=== PATIENT | male | born 1935 | race Caucasian/White ===

== ENCOUNTER 2017-02-12 21:41 | Inpatient (IN) | payer MEDICARE ==
[~2017-02-12] VITALS: Ht 175.3 cm; Wt 54.1 kg
[2017-02-12 22:13] LABS: BASO # 0.1 x10^3/uL (0.0-0.2); BASO % 1 % (0-3); EOS % 0 % (0-3); HEMATOCRIT 41.4 % (39.0-53.0); HEMOGLOBIN 14.2 g/dL (13.0-17.5); LYMPH # 0.3 x10^3/uL (1.0-4.8); LYMPH % 4 % (24-48); MEAN CORPUSCULAR HEMOGLOBIN 30 pg (25-35); MEAN CORPUSCULAR HGB CONC 34 g/dL (31-37); MEAN CORPUSCULAR VOLUME 87 fL (79-100); MONO % 9 % (0-9); NEUT % 87 % (31-73); PLATELET COUNT 219 x10^3/uL (140-400); RED BLOOD COUNT 4.74 x10^6/uL (4.30-5.70); RED CELL DISTRIBUTION WIDTH 13.5 % (11.5-14.5); WHITE BLOOD COUNT 9.5 x10^3/uL (4.0-11.0)
[2017-02-12 22:32] LABS: CALCIUM 8.3 mg/dL (8.5-10.1); CREATININE 1.2 mg/dL (0.7-1.3); GFR 58.1; POTASSIUM 4.2 mmol/L (3.5-5.1)
[2017-02-12 22:37] LABS: ALBUMIN 3.3 g/dL (3.4-5.0); DIRECT BILIRUBIN 0.1 mg/dL (0.0-0.2); TOTAL BILIRUBIN 0.5 mg/dL (0.2-1.0); TOTAL PROTEIN 7.3 g/dL (6.4-8.2)
[2017-02-12 22:46] LABS: PLT ESTIMATE ADEQUATE (ADEQUATE)
[2017-02-12] MEDS ORDERED: IV NORMAL SALINE 500ML BAG 500 ML IV ONE (23:00)
--- NOTE | 2017-02-12 23:02 | PHYS DOC ---
Past Medical History Past Medical History: Other Additional Past Medical Histor: DENIES Past Surgical History: Other Additional Past Surgical Histo: UNKNOWN Alcohol Use: None Drug Use: None Adult General Chief Complaint Chief Complaint: WEAKNESS/GENERALIZED HPI HPI 81-year-old male presenting to the emergency department today with generalized weakness and nausea. This is been present for the past few days. He was at home and was on the chair however unfortunately was not able to get out of the chair. He gently sat down on the ground but was unable to get up. He presents today by [facility] emergency medical services. EMS reports the patient has a left bundle branch block on their EKG. On review the patient's previous past medical history, the patient has a history of left bundle-branch block on EKG that was reviewed on December 05, 2013. He denies any pain anywhere. He feels "just weak". Onset today. Location generalized. Duration intermittent. No alleviating or exacerbating factors present. 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 Review of systems is negative for chest pain shortness of breath abdominal pain fevers chills cough neck stiffness confusion cyanosis numbness weakness or tingling. All other review of systems is negative unless otherwise noted in history of present illness. ED course: 81-year-old gentleman presenting to the emergency department with generalized weakness and inability to ambulate. Triage vital signs afebrile with normal heart rate. Saturating well on room air with normal blood pressure. Pertinent physical exam findings showed 5 out of 5 strength in his right upper and right lower extremity. 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 Otherwise the remainder of the neurologic exam was unremarkable. Labs obtained along with EKG. EKG shows sinus rhythm with a regular rate. Leftward axis present. Left bundle-branch block present. Previous EKG reviewed on December 05 similar to previous. Urinary tract infection present. She was then admitted to our hospital for IV antibiotic therapy further evaluation workup and care. Review of Systems Review of Systems SEE ABOVE. Current Medications Current Medications Current Medications Medications (Trade) Dose Ordered Sig/Naomi Start Time Stop Time Status Last Admin Dose Admin Sodium Chloride 500 ml @ 500 mls/hr 1X ONCE 02/12/17 23:00 02/12/17 23:59 DC 02/12/17 23:07 500 MLS/HR Allergies Allergies Allergies Coded Allergies Type Severity Reaction Last Updated Verified Penicillins Allergy Intermediate Swelling 02/12/17 Yes Physical Exam Physical Exam SEE ABOVE Constitutional: Well developed, well nourished, no acute distress, non-toxic appearance. [] HENT: Normocephalic, atraumatic, bilateral external ears normal, oropharynx moist, no oral exudates, nose normal. [] Eyes: PERRLA, EOMI, conjunctiva normal, no discharge. [] Neck: Normal range of motion, no tenderness, supple, no stridor. [] Cardiovascular:Heart rate regular rhythm, no murmur [] Lungs & Thorax: Bilateral breath sounds clear to auscultation [] Abdomen: Bowel sounds normal, soft, no tenderness, no masses, no pulsatile masses. [] Skin: Warm, dry, no erythema, no rash. [] Back: No tenderness, no CVA tenderness. [] Extremities: No tenderness, no cyanosis, no clubbing, ROM intact, no edema. [] Neurologic: Mental status: Awake oriented and alert x3 Cranial nerves: Extraocular movements intact, eyebrows maryam bilaterally smile symmetric, uvula elevation, shoulder shrug intact, tongue protrusion normal DTRs: 2+ Sensation: equal and normal in all extremities Strength: see above Psychologic: Affect normal, judgement normal, mood normal. [] Current Patient Data Vital Signs Vital Signs Date Time Temp Pulse Resp B/P (MAP) Pulse Ox O2 Delivery O2 Flow Rate FiO2 02/13/17 00:34 71 16 102/54 (70) 96 Room Air 02/12/17 21:41 98.4 98.4 Lab Values Laboratory Tests Test 02/12/17 21:57 02/12/17 23:57 White Blood Count 9.5 x10^3/uL (4.0-11.0) Red Blood Count 4.74 x10^6/uL (4.30-5.70) Hemoglobin 14.2 g/dL (13.0-17.5) Hematocrit 41.4 % (39.0-53.0) Mean Corpuscular Volume 87 fL (79-100) Mean Corpuscular Hemoglobin 30 pg (25-35) Mean Corpuscular Hemoglobin Concent 34 g/dL (31-37) Red Cell Distribution Width 13.5 % (11.5-14.5) Platelet Count 219 x10^3/uL (140-400) Neutrophils (%) (Auto) 87 % (31-73) H Lymphocytes (%) (Auto) 4 % (24-48) L Monocytes (%) (Auto) 9 % (0-9) Eosinophils (%) (Auto) 0 % (0-3) Basophils (%) (Auto) 1 % (0-3) Neutrophils # (Auto) 8.3 x10^3uL (1.8-7.7) H Lymphocytes # (Auto) 0.3 x10^3/uL (1.0-4.8) L Monocytes # (Auto) 0.8 x10^3/uL (0.0-1.1) Eosinophils # (Auto) 0.0 x10^3/uL (0.0-0.7) Basophils # (Auto) 0.1 x10^3/uL (0.0-0.2) Segmented Neutrophils % 91 % (35-66) H Band Neutrophils % 5 % (0-9) Lymphocytes % 2 % (24-48) L Monocytes % 2 % (0-10) Platelet Estimate Adequate (ADEQUATE) Sodium Level 139 mmol/L (136-145) Potassium Level 4.2 mmol/L (3.5-5.1) Chloride Level 103 mmol/L (98-107) Carbon Dioxide Level 28 mmol/L (21-32) Anion Gap 8 (6-14) Blood Urea Nitrogen 22 mg/dL (8-26) Creatinine 1.2 mg/dL (0.7-1.3) Estimated GFR (Cockcroft-Gault) 58.1 Glucose Level 172 mg/dL (70-99) H Lactic Acid Level 1.2 mmol/L (0.4-2.0) Calcium Level 8.3 mg/dL (8.5-10.1) L Total Bilirubin 0.5 mg/dL (0.2-1.0) Direct Bilirubin 0.1 mg/dL (0.0-0.2) Aspartate Amino Transferase (AST) 15 U/L (15-37) Alanine Aminotransferase (ALT) 12 U/L (16-63) L Alkaline Phosphatase 56 U/L (46-116) Troponin I Quantitative < 0.017 ng/mL (0.000-0.055) MB-Aum-S-Type Natriuretic Peptide 390 pg/mL (0-449) Total Protein 7.3 g/dL (6.4-8.2) Albumin 3.3 g/dL (3.4-5.0) L Lipase 58 U/L (73-393) L Urine Collection Type Unknown Urine Color Yellow Urine Clarity Cloudy Urine pH 6.0 Urine Specific [place] 1.015 Urine Protein 100 mg/dL (NEG-TRACE) Urine Glucose (UA) Negative mg/dL (NEG) Urine Ketones (Stick) Trace mg/dL (NEG) Urine Blood Large (NEG) Urine Nitrite Negative (NEG) Urine Bilirubin Negative (NEG) Urine Urobilinogen Dipstick 0.2 mg/dL (0.2 mg/dL) Urine Leukocyte Esterase Large (NEG) Urine RBC Tntc /HPF (0-2) Urine WBC Tntc /HPF (0-4) Urine Squamous Epithelial Cells Few /LPF Urine Bacteria Moderate /HPF (0-FEW) Urine Mucus Slight /LPF Laboratory Tests 02/12/17 21:57 Laboratory Tests 02/12/17 21:57 EKG EKG [] Radiology/Procedures Radiology/Procedures [] Course & Med Decision Making Course & Med Decision Making Pertinent Labs and Imaging studies reviewed. (See chart for details) [] Dragon Disclaimer Dragon Disclaimer This electronic medical record was generated, in whole or in part, using a voice recognition dictation system. Departure Departure Impression: Primary Impression: Generalized weakness Additional Impression: Urinary tract infection Disposition: ADMITTED INPATIENT Admitting Physician: Other (Dr. Duggan) Condition: STABLE Referrals: UNKNOWN PCP NAME (PCP) Problem Qualifiers BEATRICE SAMSON MD Feb 12, 2017 23:02
[2017-02-13 00:03] LABS: BILIRUBIN,URINE NEGATIVE (NEG); GLUCOSE,URINE NEGATIVE (NEG); NITRITE,URINE NEGATIVE (NEG); PROTEIN,URINE 100 mg/dL (NEG-TRACE); UROBILINOGEN,URINE 0.2 mg/dL (0.2 mg/dL)
[2017-02-13 00:09] LABS: BACTERIA,URINE MODERATE /HPF (0-FEW); RBC,URINE TNTC /HPF (0-2); SQUAMOUS EPITHELIAL CELL,UR FEW /LPF; WBC,URINE TNTC /HPF (0-4)
[2017-02-13] MEDS ORDERED: MORPHINE SULFATE 2 MG/ML DISP.SYRIN. IV PRN ×2 (00:45→10:15)
[2017-02-13] MEDS ORDERED: ONDANSETRON PF 4 MG/2 ML VIAL. IV PRN (00:45)
[2017-02-13] MEDS ORDERED: IV NORMAL SALINE 1000ML BAG 1,000 ML IV ONE (01:00)
[2017-02-13] MEDS ORDERED: [no home meds] (02:10)
[2017-02-13 03:51] VITALS: BP 119/61
--- NOTE | 2017-02-13 04:15 | ACF ---
Admission Forms Criteria URINARY COMPLICATIONS Clinical Indications for Inpatient Care (Place 'X' for any and all applicable criteria): Ongoing inpatient care may be indicated for urinary complications with ANY ONE of the following: [X]I. Urinary tract infection requiring inpatient care as indicated by ANY ONE of the following(8)(19)(20): [ ]a) Severe symptoms (eg, high fever, severe pain) [ ]b) Vomiting or dehydration requiring ongoing inpatient care [X]c) IV antibiotic needs that cannot be managed at lower level of care [ ]d) Hemodynamic instability [ ]e) Obstruction of collecting system by stone or tumor [ ]II. Urinary retention requiring drainage or surgery (3)(4)(5)(17)(18) [ ]III. Renal failure (Use Renal Failure Criteria for further information.) [ ]IV. Oliguria(30) [ ]V. Post obstructive diuresis requiring close monitoring of urine output and intravenous compensation for excessive fluid losses(33) Extended stay beyond goal length of stay for primary condition may be needed until ALL of the following are present(3)(4)(5)(8): [ ]a) Renal function (creatinine) at baseline, or daily decreases in creatinine consistent with renal function return [ ]b) Voiding adequately or with urinary catheter or percutaneous suprapubic tube and management regimen in place that is performable at lower level of care. [ ]c) Urine output adequate [ ]d) Fever absent or resolving [ ]e) Infection absent or treatable at next level of care The original [employer] content created by [employer] has been revised. The portions of the content which have been revised are identified through the use of italic text or in bold, and [facility] has neither reviewed nor approved the modified material. All other unmodified content is copyright [email or web address] Please see references footnoted in the original [email or web address] edition 2016 Admission Criteria Met?: Yes KENZIE BETTENCOURT Feb 13, 2017 04:15
--- NOTE | 2017-02-13 06:42 | EKG ---
[facility] [address] [place] [address] Test Date: 2017-02-12 Test Time: 21:50:04 Pat Name: SHAMIKA PÉREZ Department: Room: 536 Gender: M [employer]ician: : 1935 Requested By: BEATRICE SAMSON Order Number: [id number] Reading MD: Dana Batista Measurements Intervals [place] Rate: 81 P: 68 SD: 174 QRS: -54 QRSD: 126 T: 91 QT: 390 QTc: 453 Interpretive Statements SINUS RHYTHM ABNORMAL LEFT AXIS DEVIATION NON SPECIFIC INTRAVENTRICULAR BLOCK ABNORMAL ECG RI6.01 No previous ECG available for comparison Electronically Signed On 02-18-2017 14:47:19 CDT by Dana Batista
[2017-02-13 07:00] VITALS: BP 125/60
--- NOTE | 2017-02-13 07:42 | RAD ---
Portable chest, 02/12/2017: History: Weakness The heart size and pulmonary vascularity are normal. No pulmonary infiltrates are seen. There is no evidence of pleural fluid. IMPRESSION: No acute cardiopulmonary abnormality is detected.
--- NOTE | 2017-02-13 09:53 | PDOC1 ---
History and Physical Date of Admission Date of Admission DATE: 02/13/17 TIME: 09:51 Identification/Chief Complaint Chief Complaint abd pain Problems: Source Source: Chart review, Patient History of Present Illness History of Present Illness Mr. Gambino, is an 81-year-old male admit w. abd pain, weakness and nausea. he reports a renal stone, left side "he says it is 1.9" has been treated at the [facility], and has not seen a urologist. 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 Past Medical History Cardiovascular: No pertinent hx Pulmonary: No pertinent hx GI: No pertinent hx Hepatobiliary: No pertinent hx Psych: No pertinent hx Rheumatologic: No pertinent hx Infectious disease: No pertinent hx ENT: No pertinent hx Renal/: No pertinent hx Past Surgical History Past Surgical History: No pertinent history Family History Family History: No Significant Social History Smoke: No ALCOHOL: none Drugs: None Current Problem List Problem List Problems Medical Problems: (1) Generalized weakness Status: Acute (2) Urinary tract infection Status: Acute Problems: Current Medications Current Medications Current Medications Sodium Chloride 500 ml @ 500 mls/hr 1X ONCE IV Last administered on 23:07; Start 02/12/17 at 23:00; Stop 02/12/17 at 23:59; Status DC Levofloxacin/ Dextrose 100 ml @ 100 mls/hr 1X ONCE IV Last administered on 01:18; Start 02/13/17 at 01:00; Stop 02/13/17 at 01:59; Status DC Ondansetron HCl (Zofran) 4 mg PRN Q8HRS PRN IV NAUSEA/VOMITING Last administered on 02/13/17 01:18; Start 02/13/17 at 00:45; Stop 02/14/17 at 00:44 Morphine Sulfate 2 mg PRN Q2HR PRN IV SEVERE PAIN Last administered on 09:46; Start 02/13/17 at 00:45; Stop 02/14/17 at 00:44 Sodium Chloride 1,000 ml @ 100 mls/hr 1X ONCE IV Last administered on 01:19; Start 02/13/17 at 01:00; Stop 02/13/17 at 10:59 Active Scripts Active Reported [[no home meds]] Allergies Allergies: Coded Allergies: Penicillins (Verified Allergy, Intermediate, Swelling, 02/12/17) ROS Review of System Review of systems is negative for chest pain shortness of breath abdominal pain fevers chills cough neck stiffness confusion cyanosis numbness weakness or tingling. All other review of systems is negative unless otherwise noted in history of present illness. General: No: Chills, Night Sweats, Fatigue, Malaise, Appetite, Other PSYCHOLOGICAL ROS: No: Anxiety, Behavioral Disorder, Concentration difficultie , Decreased libido, Depression, Disorientation, Hallucinations, Hostility, Irritablity, Memory difficulties, Mood Swings, Obsessive thoughts, Physical abuse, Sexual abuse, Sleep disturbances, Suicidal ideation, Other Eyes: No Blurry vision, No Decreased vision, No Double vision, No Dry eyes, No Excessive tearing, No Eye Pain, No Itchy Eyes, No Loss of vision, No Photophobia , No Scotomata, No Uses contacts, No Uses glasses, No Other HEENT: YES: Other (hard of hearing), No: Heacaches, Visual Changes, Hearing change, Nasal congestion, Nasal discharge, Oral lesions, Sinus pain, Sore Throat, Epistaxis, Sneezing, Snoring, Tinnitus, Vertigo, Vocal changes Respiratory: No: Cough, Hemoptysis, Orthopnea, Pleuritic Pain, Shortness of breath, SOB with excertion, Sputum Changes, Stridor, Tachypnea, Wheezing, Other Cardiovascular: No Chest Pain, No Palpitations, No Orthopnea, No Paroxysmal Noc. Dyspnea, No Edema, No Lt Headedness, No Other Gastrointestinal: Yes Abdominal Pain, No Nausea, No Vomiting, No Diarrhea, No Constipation, No Melena, No Hematochezia, No Other Genitourinary: YES Pain, YES Flank Pain, No Dysuria, No Frequency, No Incontinence, No Hematuria, No Retention, No Discharge, No Urgency, No Other, No , No , No , No , No , No , No Musculoskeletal: Yes Joint Pain, No Gait Disturbance, No Joint Stiffness, No Joint Swelling, No Muscle Pain, No Muscular Weakness, No Pain In:, No Swelling In:, No Other Neurological: No Behavorial Changes, No Bowel/Bladder ControlChng, No Confusion , No Dizziness, No Gait Disturbance, No Headaches, No Impaired Coord/balance, No Memory Loss, No Numbness/Tingling, No Seizures, No Speech Problems, No Tremors, No Visual Changes, No Weakness, No Other Skin: Yes Dry Skin, No Eczema, No Hair Changes, No Lumps, No Mole Changes, No Mottling, No Nail Changes, No Pruritus, No Rash, No Skin Lesion Changes, No Other, No Acne Physical Exam General: Alert, Oriented X3, Cooperative, No acute distress HEENT: Atraumatic, EOMI, Mucous membr. moist/pink Lungs: Clear to auscultation, Normal air movement Heart: no gallops, no murmurs Abdomen: Normal bowel sounds, Soft Rectal Exam: not examined, deferred Extremities: No clubbing, No cyanosis, No edema, Normal pulses Skin: No rashes Neuro: Normal speech, Normal tone, Sensation intact, Cranial nerves 3-12 NL Psych/Mental Status: Mental status NL, Mood NL Vitals Vitals Vital Signs Date Time Temp Pulse Resp B/P (MAP) Pulse Ox O2 Delivery O2 Flow Rate FiO2 02/13/17 09:46 16 02/13/17 07:00 99.0 82 125/60 (81) 94 Room Air 99.0 Labs Labs Laboratory Tests Test 02/12/17 21:57 02/12/17 23:57 White Blood Count 9.5 x10^3/uL (4.0-11.0) Red Blood Count 4.74 x10^6/uL (4.30-5.70) Hemoglobin 14.2 g/dL (13.0-17.5) Hematocrit 41.4 % (39.0-53.0) Mean Corpuscular Volume 87 fL (79-100) Mean Corpuscular Hemoglobin 30 pg (25-35) Mean Corpuscular Hemoglobin Concent 34 g/dL (31-37) Red Cell Distribution Width 13.5 % (11.5-14.5) Platelet Count 219 x10^3/uL (140-400) Neutrophils (%) (Auto) 87 % (31-73) Lymphocytes (%) (Auto) 4 % (24-48) Monocytes (%) (Auto) 9 % (0-9) Eosinophils (%) (Auto) 0 % (0-3) Basophils (%) (Auto) 1 % (0-3) Neutrophils # (Auto) 8.3 x10^3uL (1.8-7.7) Lymphocytes # (Auto) 0.3 x10^3/uL (1.0-4.8) Monocytes # (Auto) 0.8 x10^3/uL (0.0-1.1) Eosinophils # (Auto) 0.0 x10^3/uL (0.0-0.7) Basophils # (Auto) 0.1 x10^3/uL (0.0-0.2) Segmented Neutrophils % 91 % (35-66) Band Neutrophils % 5 % (0-9) Lymphocytes % 2 % (24-48) Monocytes % 2 % (0-10) Platelet Estimate Adequate (ADEQUATE) Sodium Level 139 mmol/L (136-145) Potassium Level 4.2 mmol/L (3.5-5.1) Chloride Level 103 mmol/L (98-107) Carbon Dioxide Level 28 mmol/L (21-32) Anion Gap 8 (6-14) Blood Urea Nitrogen 22 mg/dL (8-26) Creatinine 1.2 mg/dL (0.7-1.3) Estimated GFR (Cockcroft-Gault) 58.1 Glucose Level 172 mg/dL (70-99) Lactic Acid Level 1.2 mmol/L (0.4-2.0) Calcium Level 8.3 mg/dL (8.5-10.1) Total Bilirubin 0.5 mg/dL (0.2-1.0) Direct Bilirubin 0.1 mg/dL (0.0-0.2) Aspartate Amino Transf (AST/SGOT) 15 U/L (15-37) Alanine Aminotransferase (ALT/SGPT) 12 U/L (16-63) Alkaline Phosphatase 56 U/L (46-116) Troponin I Quantitative < 0.017 ng/mL (0.000-0.055) EX-Zmc-M-Type Natriuretic Peptide 390 pg/mL (0-449) Total Protein 7.3 g/dL (6.4-8.2) Albumin 3.3 g/dL (3.4-5.0) Lipase 58 U/L (73-393) Urine Collection Type Unknown Urine Color Yellow Urine Clarity Cloudy Urine pH 6.0 Urine Specific [place] 1.015 Urine Protein 100 mg/dL (NEG-TRACE) Urine Glucose (UA) Negative mg/dL (NEG) Urine Ketones (Stick) Trace mg/dL (NEG) Urine Blood Large (NEG) Urine Nitrite Negative (NEG) Urine Bilirubin Negative (NEG) Urine Urobilinogen Dipstick 0.2 mg/dL (0.2 mg/dL) Urine Leukocyte Esterase Large (NEG) Urine RBC Tntc /HPF (0-2) Urine WBC Tntc /HPF (0-4) Urine Squamous Epithelial Cells Few /LPF Urine Bacteria Moderate /HPF (0-FEW) Urine Mucus Slight /LPF Laboratory Tests Test 02/12/17 21:57 02/12/17 23:57 White Blood Count 9.5 x10^3/uL (4.0-11.0) Red Blood Count 4.74 x10^6/uL (4.30-5.70) Hemoglobin 14.2 g/dL (13.0-17.5) Hematocrit 41.4 % (39.0-53.0) Mean Corpuscular Volume 87 fL (79-100) Mean Corpuscular Hemoglobin 30 pg (25-35) Mean Corpuscular Hemoglobin Concent 34 g/dL (31-37) Red Cell Distribution Width 13.5 % (11.5-14.5) Platelet Count 219 x10^3/uL (140-400) Neutrophils (%) (Auto) 87 % (31-73) Lymphocytes (%) (Auto) 4 % (24-48) Monocytes (%) (Auto) 9 % (0-9) Eosinophils (%) (Auto) 0 % (0-3) Basophils (%) (Auto) 1 % (0-3) Neutrophils # (Auto) 8.3 x10^3uL (1.8-7.7) Lymphocytes # (Auto) 0.3 x10^3/uL (1.0-4.8) Monocytes # (Auto) 0.8 x10^3/uL (0.0-1.1) Eosinophils # (Auto) 0.0 x10^3/uL (0.0-0.7) Basophils # (Auto) 0.1 x10^3/uL (0.0-0.2) Segmented Neutrophils % 91 % (35-66) Band Neutrophils % 5 % (0-9) Lymphocytes % 2 % (24-48) Monocytes % 2 % (0-10) Platelet Estimate Adequate (ADEQUATE) Sodium Level 139 mmol/L (136-145) Potassium Level 4.2 mmol/L (3.5-5.1) Chloride Level 103 mmol/L (98-107) Carbon Dioxide Level 28 mmol/L (21-32) Anion Gap 8 (6-14) Blood Urea Nitrogen 22 mg/dL (8-26) Creatinine 1.2 mg/dL (0.7-1.3) Estimated GFR (Cockcroft-Gault) 58.1 Glucose Level 172 mg/dL (70-99) Lactic Acid Level 1.2 mmol/L (0.4-2.0) Calcium Level 8.3 mg/dL (8.5-10.1) Total Bilirubin 0.5 mg/dL (0.2-1.0) Direct Bilirubin 0.1 mg/dL (0.0-0.2) Aspartate Amino Transf (AST/SGOT) 15 U/L (15-37) Alanine Aminotransferase (ALT/SGPT) 12 U/L (16-63) Alkaline Phosphatase 56 U/L (46-116) Troponin I Quantitative < 0.017 ng/mL (0.000-0.055) HT-Vli-Q-Type Natriuretic Peptide 390 pg/mL (0-449) Total Protein 7.3 g/dL (6.4-8.2) Albumin 3.3 g/dL (3.4-5.0) Lipase 58 U/L (73-393) Urine Collection Type Unknown Urine Color Yellow Urine Clarity Cloudy Urine pH 6.0 Urine Specific [place] 1.015 Urine Protein 100 mg/dL (NEG-TRACE) Urine Glucose (UA) Negative mg/dL (NEG) Urine Ketones (Stick) Trace mg/dL (NEG) Urine Blood Large (NEG) Urine Nitrite Negative (NEG) Urine Bilirubin Negative (NEG) Urine Urobilinogen Dipstick 0.2 mg/dL (0.2 mg/dL) Urine Leukocyte Esterase Large (NEG) Urine RBC Tntc /HPF (0-2) Urine WBC Tntc /HPF (0-4) Urine Squamous Epithelial Cells Few /LPF Urine Bacteria Moderate /HPF (0-FEW) Urine Mucus Slight /LPF VTE Prophylaxis Ordered VTE Prophylaxis Devices: Yes VTE Pharmacological Prophylaxi: No Assessment/Plan Assessment/Plan UTI flank pain urinary retention, start flomax, consult Uro levaquin IV, trans to PO, cx pending PATRICIA MOSQUERA MD Feb 13, 2017 09:52
[2017-02-13] MEDS ORDERED: TAMSULOSIN 0.4 MG CAP.ER.24H. PO ONE (10:00)
[2017-02-13] MEDS ORDERED: PHENAZOPYRIDINE 200 MG TABLET. PO PRN (10:00)
[2017-02-13 10:35] VITALS: BP 137/68
--- NOTE | 2017-02-13 13:58 | RAD ---
Renal ultrasound, 02/13/2017: History: Left flank pain and ureteral stone, possible hydronephrosis No previous renal imaging is available at this time for correlative purposes. The right kidney measures 11.0 cm in length while the left kidney measures 10.9 cm. There is mild dilatation of the right renal pelvis. No hydronephrosis is evident on the left. No renal mass is identified. Incidental note is made of a moderate size gallstone in the gallbladder neck. No mural thickening or pericholecystic edema is seen. Limited views of urinary bladder show no abnormality. IMPRESSION: 1. Mild dilatation of the right renal pelvis. 2. The kidneys are otherwise unremarkable. 3. Incidental note is made of cholelithiasis.
--- NOTE | 2017-02-13 14:01 | RAD ---
Portable abdomen, 02/13/2017: History: Possible left renal calculus Gas is present in large and small bowel in a nonspecific pattern. There is no evidence of organomegaly. There is a 15 mm density overlying the right upper quadrant compatible with a gallstone. There are mild scattered vascular calcifications. Lower pelvic calcifications are compatible with phleboliths. There is a 4 mm radiopacity projected over the left sacral wing. There are mild scattered degenerative changes in the spine. Mild degenerative changes are present at both hip joints. IMPRESSION: 1. Cholelithiasis. 2. Scattered vascular calcifications. 3. A small radiopacity overlying the left sacral wing may be a vascular calcification or a ureteral calculus. Correlation with CT findings may be useful for further evaluation, if not already performed elsewhere.
[2017-02-13 14:56] VITALS: BP 115/61
[2017-02-13 19:00] VITALS: BP 131/61
[2017-02-13] MEDS ORDERED: ACETAMINOPHEN 325 MG TABLET. PO PRN (19:45)
[2017-02-13 22:35] VITALS: BP 92/51
[2017-02-14 03:00] VITALS: BP 97/40
[2017-02-14 06:39] LABS: BASO # 0.1 x10^3/uL (0.0-0.2); BASO % 1 % (0-3); EOS % 0 % (0-3); HEMATOCRIT 39.1 % (39.0-53.0); HEMOGLOBIN 13.4 g/dL (13.0-17.5); LYMPH # 0.5 x10^3/uL (1.0-4.8); LYMPH % 7 % (24-48); MEAN CORPUSCULAR HEMOGLOBIN 30 pg (25-35); MEAN CORPUSCULAR HGB CONC 34 g/dL (31-37); MEAN CORPUSCULAR VOLUME 87 fL (79-100); MONO % 9 % (0-9); NEUT % 83 % (31-73); PLATELET COUNT 177 x10^3/uL (140-400); RED BLOOD COUNT 4.48 x10^6/uL (4.30-5.70); RED CELL DISTRIBUTION WIDTH 13.3 % (11.5-14.5); WHITE BLOOD COUNT 7.4 x10^3/uL (4.0-11.0)
[2017-02-14 06:59] LABS: CALCIUM 8.4 mg/dL (8.5-10.1); CREATININE 1.3 mg/dL (0.7-1.3); POTASSIUM 4.1 mmol/L (3.5-5.1)
[2017-02-14 07:00] VITALS: BP_SYST 113; BP_SYST 134; BP_DIAS 59; BP_DIAS 66
--- NOTE | 2017-02-14 08:49 | PDOC ---
PROGRESS NOTES Chief Complaint Chief Complaint UTI flank pain urinary retention, BPH History of Present Illness History of Present Illness start flomax, consult Uro levaquin IV, trans to PO, cx pending CT abd/pelvis noncon to [facility] for stone, Dr. argueta following plan will be to DC with abarca, f/u at [facility], Dr. Burden for abarca removal Vitals Vitals Vital Signs Date Time Temp Pulse Resp B/P (MAP) Pulse Ox O2 Delivery O2 Flow Rate FiO2 02/14/17 07:00 98.9 83 18 113/59 (77) 96 Room Air 98.9 Physical Exam General: Alert, Oriented X3, Cooperative, No acute distress Heart: Regular rate, No murmurs Lungs: Clear Abdomen: Normal bowel sounds, Soft Extremities: No clubbing, No cyanosis, No edema, Normal pulses Skin: No rashes Labs LABS Laboratory Tests Test 02/14/17 06:15 White Blood Count 7.4 x10^3/uL (4.0-11.0) Red Blood Count 4.48 x10^6/uL (4.30-5.70) Hemoglobin 13.4 g/dL (13.0-17.5) Hematocrit 39.1 % (39.0-53.0) Mean Corpuscular Volume 87 fL (79-100) Mean Corpuscular Hemoglobin 30 pg (25-35) Mean Corpuscular Hemoglobin Concent 34 g/dL (31-37) Red Cell Distribution Width 13.3 % (11.5-14.5) Platelet Count 177 x10^3/uL (140-400) Neutrophils (%) (Auto) 83 % (31-73) Lymphocytes (%) (Auto) 7 % (24-48) Monocytes (%) (Auto) 9 % (0-9) Eosinophils (%) (Auto) 0 % (0-3) Basophils (%) (Auto) 1 % (0-3) Neutrophils # (Auto) 6.1 x10^3uL (1.8-7.7) Lymphocytes # (Auto) 0.5 x10^3/uL (1.0-4.8) Monocytes # (Auto) 0.7 x10^3/uL (0.0-1.1) Eosinophils # (Auto) 0.0 x10^3/uL (0.0-0.7) Basophils # (Auto) 0.1 x10^3/uL (0.0-0.2) Sodium Level 137 mmol/L (136-145) Potassium Level 4.1 mmol/L (3.5-5.1) Chloride Level 102 mmol/L (98-107) Carbon Dioxide Level 26 mmol/L (21-32) Anion Gap 9 (6-14) Blood Urea Nitrogen 19 mg/dL (8-26) Creatinine 1.3 mg/dL (0.7-1.3) Estimated GFR (Cockcroft-Gault) 53.0 Glucose Level 101 mg/dL (70-99) Calcium Level 8.4 mg/dL (8.5-10.1) Review of Systems Review of Systems no n.vd weakness poor po intake left lower abd pain Assessment and Plan Assessmemt and Plan Problems Medical Problems: (1) Generalized weakness Status: Acute (2) Urinary tract infection Status: Acute Problems: Comment Review of Relevant I have reviewed the following items kemi (where applicable) has been applied. Labs Laboratory Tests Test 02/12/17 21:57 02/12/17 23:57 02/14/17 06:15 White Blood Count 9.5 x10^3/uL (4.0-11.0) 7.4 x10^3/uL (4.0-11.0) Red Blood Count 4.74 x10^6/uL (4.30-5.70) 4.48 x10^6/uL (4.30-5.70) Hemoglobin 14.2 g/dL (13.0-17.5) 13.4 g/dL (13.0-17.5) Hematocrit 41.4 % (39.0-53.0) 39.1 % (39.0-53.0) Mean Corpuscular Volume 87 fL (79-100) 87 fL (79-100) Mean Corpuscular Hemoglobin 30 pg (25-35) 30 pg (25-35) Mean Corpuscular Hemoglobin Concent 34 g/dL (31-37) 34 g/dL (31-37) Red Cell Distribution Width 13.5 % (11.5-14.5) 13.3 % (11.5-14.5) Platelet Count 219 x10^3/uL (140-400) 177 x10^3/uL (140-400) Neutrophils (%) (Auto) 87 % (31-73) 83 % (31-73) Lymphocytes (%) (Auto) 4 % (24-48) 7 % (24-48) Monocytes (%) (Auto) 9 % (0-9) 9 % (0-9) Eosinophils (%) (Auto) 0 % (0-3) 0 % (0-3) Basophils (%) (Auto) 1 % (0-3) 1 % (0-3) Neutrophils # (Auto) 8.3 x10^3uL (1.8-7.7) 6.1 x10^3uL (1.8-7.7) Lymphocytes # (Auto) 0.3 x10^3/uL (1.0-4.8) 0.5 x10^3/uL (1.0-4.8) Monocytes # (Auto) 0.8 x10^3/uL (0.0-1.1) 0.7 x10^3/uL (0.0-1.1) Eosinophils # (Auto) 0.0 x10^3/uL (0.0-0.7) 0.0 x10^3/uL (0.0-0.7) Basophils # (Auto) 0.1 x10^3/uL (0.0-0.2) 0.1 x10^3/uL (0.0-0.2) Segmented Neutrophils % 91 % (35-66) Band Neutrophils % 5 % (0-9) Lymphocytes % 2 % (24-48) Monocytes % 2 % (0-10) Platelet Estimate Adequate (ADEQUATE) Sodium Level 139 mmol/L (136-145) 137 mmol/L (136-145) Potassium Level 4.2 mmol/L (3.5-5.1) 4.1 mmol/L (3.5-5.1) Chloride Level 103 mmol/L (98-107) 102 mmol/L (98-107) Carbon Dioxide Level 28 mmol/L (21-32) 26 mmol/L (21-32) Anion Gap 8 (6-14) 9 (6-14) Blood Urea Nitrogen 22 mg/dL (8-26) 19 mg/dL (8-26) Creatinine 1.2 mg/dL (0.7-1.3) 1.3 mg/dL (0.7-1.3) Estimated GFR (Cockcroft-Gault) 58.1 53.0 Glucose Level 172 mg/dL (70-99) 101 mg/dL (70-99) Lactic Acid Level 1.2 mmol/L (0.4-2.0) Calcium Level 8.3 mg/dL (8.5-10.1) 8.4 mg/dL (8.5-10.1) Total Bilirubin 0.5 mg/dL (0.2-1.0) Direct Bilirubin 0.1 mg/dL (0.0-0.2) Aspartate Amino Transf (AST/SGOT) 15 U/L (15-37) Alanine Aminotransferase (ALT/SGPT) 12 U/L (16-63) Alkaline Phosphatase 56 U/L (46-116) Troponin I Quantitative < 0.017 ng/mL (0.000-0.055) PF-Psb-C-Type Natriuretic Peptide 390 pg/mL (0-449) Total Protein 7.3 g/dL (6.4-8.2) Albumin 3.3 g/dL (3.4-5.0) Lipase 58 U/L (73-393) Urine Collection Type Unknown Urine Color Yellow Urine Clarity Cloudy Urine pH 6.0 Urine Specific [place] 1.015 Urine Protein 100 mg/dL (NEG-TRACE) Urine Glucose (UA) Negative mg/dL (NEG) Urine Ketones (Stick) Trace mg/dL (NEG) Urine Blood Large (NEG) Urine Nitrite Negative (NEG) Urine Bilirubin Negative (NEG) Urine Urobilinogen Dipstick 0.2 mg/dL (0.2 mg/dL) Urine Leukocyte Esterase Large (NEG) Urine RBC Tntc /HPF (0-2) Urine WBC Tntc /HPF (0-4) Urine Squamous Epithelial Cells Few /LPF Urine Bacteria Moderate /HPF (0-FEW) Urine Mucus Slight /LPF Laboratory Tests Test 02/14/17 06:15 White Blood Count 7.4 x10^3/uL (4.0-11.0) Red Blood Count 4.48 x10^6/uL (4.30-5.70) Hemoglobin 13.4 g/dL (13.0-17.5) Hematocrit 39.1 % (39.0-53.0) Mean Corpuscular Volume 87 fL (79-100) Mean Corpuscular Hemoglobin 30 pg (25-35) Mean Corpuscular Hemoglobin Concent 34 g/dL (31-37) Red Cell Distribution Width 13.3 % (11.5-14.5) Platelet Count 177 x10^3/uL (140-400) Neutrophils (%) (Auto) 83 % (31-73) Lymphocytes (%) (Auto) 7 % (24-48) Monocytes (%) (Auto) 9 % (0-9) Eosinophils (%) (Auto) 0 % (0-3) Basophils (%) (Auto) 1 % (0-3) Neutrophils # (Auto) 6.1 x10^3uL (1.8-7.7) Lymphocytes # (Auto) 0.5 x10^3/uL (1.0-4.8) Monocytes # (Auto) 0.7 x10^3/uL (0.0-1.1) Eosinophils # (Auto) 0.0 x10^3/uL (0.0-0.7) Basophils # (Auto) 0.1 x10^3/uL (0.0-0.2) Sodium Level 137 mmol/L (136-145) Potassium Level 4.1 mmol/L (3.5-5.1) Chloride Level 102 mmol/L (98-107) Carbon Dioxide Level 26 mmol/L (21-32) Anion Gap 9 (6-14) Blood Urea Nitrogen 19 mg/dL (8-26) Creatinine 1.3 mg/dL (0.7-1.3) Estimated GFR (Cockcroft-Gault) 53.0 Glucose Level 101 mg/dL (70-99) Calcium Level 8.4 mg/dL (8.5-10.1) Medications Current Medications Sodium Chloride 500 ml @ 500 mls/hr 1X ONCE IV Last administered on 23:07; Start 02/12/17 at 23:00; Stop 02/12/17 at 23:59; Status DC Levofloxacin/ Dextrose 100 ml @ 100 mls/hr 1X ONCE IV Last administered on 01:18; Start 02/13/17 at 01:00; Stop 02/13/17 at 01:59; Status DC Ondansetron HCl (Zofran) 4 mg PRN Q8HRS PRN IV NAUSEA/VOMITING Last administered on 02/13/17 01:18; Start 02/13/17 at 00:45; Stop 02/14/17 at 00:44 ; Status DC Morphine Sulfate 2 mg PRN Q2HR PRN IV SEVERE PAIN Last administered on 09:46; Start 02/13/17 at 00:45; Stop 02/13/17 at 10:16; Status DC Sodium Chloride 1,000 ml @ 100 mls/hr 1X ONCE IV Last administered on 01:19; Start 02/13/17 at 01:00; Stop 02/13/17 at 10:59; Status DC Phenazopyridine HCl (Pyridium) 200 mg PRN TID PRN PO URINARY PAIN; Start at 10:00 Levofloxacin (Levaquin) 500 mg DAILY06 PO ; Start 02/14/17 at 06:00; Stop at 06:00; Status DC Tamsulosin HCl (Flomax) 0.4 mg DAILY PO ; Start 02/14/17 at 09:00 Tamsulosin HCl (Flomax) 0.4 mg 1X ONCE PO Last administered on 02/13/17 10:22 ; Start 02/13/17 at 10:00; Stop 02/13/17 at 10:05; Status DC Morphine Sulfate 4 mg PRN Q2HR PRN IV SEVERE PAIN; Start 02/13/17 at 10:15 Levofloxacin (Levaquin) 250 mg DAILY06 PO Last administered on 02/14/17 05:46 ; Start 02/14/17 at 06:00 Acetaminophen (Tylenol) 650 mg PRN Q6HRS PRN PO Temp Last administered on 20:50; Start 02/13/17 at 19:45 Active Scripts Active Reported [[no home meds]] Vitals/I & O Vital Sign - Last 24 Hours 02/13/17 02/13/17 02/13/17 02/13/17 09:46 10:35 14:56 19:00 Temp 98.5 98.8 101.3 98.5 98.8 101.3 Pulse 81 88 93 Resp 16 18 18 18 B/P (MAP) 137/68 (91) 115/61 (79) 131/61 (84) Pulse Ox 93 96 O2 Delivery Room Air Room Air Room Air 02/13/17 02/13/17 02/14/17 02/14/17 20:00 22:35 03:00 07:00 Temp 99.1 97.7 98.9 99.1 97.7 98.9 Pulse 84 81 83 Resp 20 18 18 B/P (MAP) 92/51 (65) 97/40 (59) 113/59 (77) Pulse Ox 93 93 96 O2 Delivery Room Air Room Air Room Air Room Air Intake and Output 02/13/17 02/13/17 02/14/17 15:00 23:00 07:00 Intake Total 580 ml 360 ml 300 ml Output Total 400 ml 700 ml Balance 580 ml -40 ml -400 ml PATRICIA MOSQUERA MD Feb 14, 2017 08:49
[2017-02-14] MEDS ORDERED: DOCUSATE SODIUM 100 MG CAPSULE. PO PRN (09:00)
[2017-02-14] MEDS: POLYETHYLENE GLYCOL 3350 17 GM PACKET. PO SCH (09:45)
[2017-02-14] MEDS: TAMSULOSIN 0.4 MG CAP.ER.24H. PO SCH (09:45)
--- NOTE | 2017-02-14 09:53 | PDOC2 ---
UROLOGY CONSULT Date of Admission DATE: 02/14/17 TIME: 09:52 ROS ROS: RESPIRATORY: Shortness of breath denies. Cough denies. UROLOGY: Denies blood in urine. Denies difficulty urinating Current Medications Current Medications Sodium Chloride 500 ml @ 500 mls/hr 1X ONCE IV Last administered on 23:07; Start 02/12/17 at 23:00; Stop 02/12/17 at 23:59; Status DC Levofloxacin/ Dextrose 100 ml @ 100 mls/hr 1X ONCE IV Last administered on 01:18; Start 02/13/17 at 01:00; Stop 02/13/17 at 01:59; Status DC Ondansetron HCl (Zofran) 4 mg PRN Q8HRS PRN IV NAUSEA/VOMITING Last administered on 02/13/17 01:18; Start 02/13/17 at 00:45; Stop 02/14/17 at 00:44 ; Status DC Morphine Sulfate 2 mg PRN Q2HR PRN IV SEVERE PAIN Last administered on 09:46; Start 02/13/17 at 00:45; Stop 02/13/17 at 10:16; Status DC Sodium Chloride 1,000 ml @ 100 mls/hr 1X ONCE IV Last administered on 01:19; Start 02/13/17 at 01:00; Stop 02/13/17 at 10:59; Status DC Phenazopyridine HCl (Pyridium) 200 mg PRN TID PRN PO URINARY PAIN; Start at 10:00 Levofloxacin (Levaquin) 500 mg DAILY06 PO ; Start 02/14/17 at 06:00; Stop at 06:00; Status DC Tamsulosin HCl (Flomax) 0.4 mg DAILY PO Last administered on 02/14/17 09:45; Start 02/14/17 at 09:00 Tamsulosin HCl (Flomax) 0.4 mg 1X ONCE PO Last administered on 02/13/17 10:22 ; Start 02/13/17 at 10:00; Stop 02/13/17 at 10:05; Status DC Morphine Sulfate 4 mg PRN Q2HR PRN IV SEVERE PAIN; Start 02/13/17 at 10:15 Levofloxacin (Levaquin) 250 mg DAILY06 PO Last administered on 02/14/17 05:46 ; Start 02/14/17 at 06:00 Acetaminophen (Tylenol) 650 mg PRN Q6HRS PRN PO Temp Last administered on 20:50; Start 02/13/17 at 19:45 Polyethylene Glycol (miraLAX PACKET) 17 gm DAILY PO Last administered on 09:45; Start 02/14/17 at 09:00 Docusate Sodium (Colace) 100 mg PRN DAILY PRN PO CONSTIPATION; Start 02/14/17 at 09:00 Active Scripts Active Reported [[no home meds]] Allergies: Coded Allergies: Penicillins (Verified Allergy, Intermediate, Swelling, 02/12/17) Physical Examination PHYSICAL EXAMINATION: GENERAL: Gen. appearance: No acute distress. Mood/affect: Pleasant. HEENT: Head: Normocephalic, atraumatic. Airway Impairment: No. CHEST: Shape and expansion: Normal. Expansion: Normal. SKIN: General: Warm. Color: Good. GENITOURINARY:External genitalia - wnl. NEUROLOGICAL: Mental status: Alert and oriented 3. Language: Normal. VITALS Vital Signs Date Time Temp Pulse Resp B/P (MAP) Pulse Ox O2 Delivery O2 Flow Rate FiO2 02/14/17 07:00 98.9 83 18 113/59 (77) 96 Room Air 98.9 Labs Laboratory Tests Test 02/12/17 21:57 02/12/17 23:57 02/14/17 06:15 White Blood Count 9.5 x10^3/uL (4.0-11.0) 7.4 x10^3/uL (4.0-11.0) Red Blood Count 4.74 x10^6/uL (4.30-5.70) 4.48 x10^6/uL (4.30-5.70) Hemoglobin 14.2 g/dL (13.0-17.5) 13.4 g/dL (13.0-17.5) Hematocrit 41.4 % (39.0-53.0) 39.1 % (39.0-53.0) Mean Corpuscular Volume 87 fL (79-100) 87 fL (79-100) Mean Corpuscular Hemoglobin 30 pg (25-35) 30 pg (25-35) Mean Corpuscular Hemoglobin Concent 34 g/dL (31-37) 34 g/dL (31-37) Red Cell Distribution Width 13.5 % (11.5-14.5) 13.3 % (11.5-14.5) Platelet Count 219 x10^3/uL (140-400) 177 x10^3/uL (140-400) Neutrophils (%) (Auto) 87 % (31-73) 83 % (31-73) Lymphocytes (%) (Auto) 4 % (24-48) 7 % (24-48) Monocytes (%) (Auto) 9 % (0-9) 9 % (0-9) Eosinophils (%) (Auto) 0 % (0-3) 0 % (0-3) Basophils (%) (Auto) 1 % (0-3) 1 % (0-3) Neutrophils # (Auto) 8.3 x10^3uL (1.8-7.7) 6.1 x10^3uL (1.8-7.7) Lymphocytes # (Auto) 0.3 x10^3/uL (1.0-4.8) 0.5 x10^3/uL (1.0-4.8) Monocytes # (Auto) 0.8 x10^3/uL (0.0-1.1) 0.7 x10^3/uL (0.0-1.1) Eosinophils # (Auto) 0.0 x10^3/uL (0.0-0.7) 0.0 x10^3/uL (0.0-0.7) Basophils # (Auto) 0.1 x10^3/uL (0.0-0.2) 0.1 x10^3/uL (0.0-0.2) Segmented Neutrophils % 91 % (35-66) Band Neutrophils % 5 % (0-9) Lymphocytes % 2 % (24-48) Monocytes % 2 % (0-10) Platelet Estimate Adequate (ADEQUATE) Sodium Level 139 mmol/L (136-145) 137 mmol/L (136-145) Potassium Level 4.2 mmol/L (3.5-5.1) 4.1 mmol/L (3.5-5.1) Chloride Level 103 mmol/L (98-107) 102 mmol/L (98-107) Carbon Dioxide Level 28 mmol/L (21-32) 26 mmol/L (21-32) Anion Gap 8 (6-14) 9 (6-14) Blood Urea Nitrogen 22 mg/dL (8-26) 19 mg/dL (8-26) Creatinine 1.2 mg/dL (0.7-1.3) 1.3 mg/dL (0.7-1.3) Estimated GFR (Cockcroft-Gault) 58.1 53.0 Glucose Level 172 mg/dL (70-99) 101 mg/dL (70-99) Lactic Acid Level 1.2 mmol/L (0.4-2.0) Calcium Level 8.3 mg/dL (8.5-10.1) 8.4 mg/dL (8.5-10.1) Total Bilirubin 0.5 mg/dL (0.2-1.0) Direct Bilirubin 0.1 mg/dL (0.0-0.2) Aspartate Amino Transf (AST/SGOT) 15 U/L (15-37) Alanine Aminotransferase (ALT/SGPT) 12 U/L (16-63) Alkaline Phosphatase 56 U/L (46-116) Troponin I Quantitative < 0.017 ng/mL (0.000-0.055) [id number]-Type Natriuretic Peptide 390 pg/mL (0-449) Total Protein 7.3 g/dL (6.4-8.2) Albumin 3.3 g/dL (3.4-5.0) Lipase 58 U/L (73-393) Urine Collection Type Unknown Urine Color Yellow Urine Clarity Cloudy Urine pH 6.0 Urine Specific [place] 1.015 Urine Protein 100 mg/dL (NEG-TRACE) Urine Glucose (UA) Negative mg/dL (NEG) Urine Ketones (Stick) Trace mg/dL (NEG) Urine Blood Large (NEG) Urine Nitrite Negative (NEG) Urine Bilirubin Negative (NEG) Urine Urobilinogen Dipstick 0.2 mg/dL (0.2 mg/dL) Urine Leukocyte Esterase Large (NEG) Urine RBC Tntc /HPF (0-2) Urine WBC Tntc /HPF (0-4) Urine Squamous Epithelial Cells Few /LPF Urine Bacteria Moderate /HPF (0-FEW) Urine Mucus Slight /LPF Laboratory Tests Test 02/14/17 06:15 White Blood Count 7.4 x10^3/uL (4.0-11.0) Red Blood Count 4.48 x10^6/uL (4.30-5.70) Hemoglobin 13.4 g/dL (13.0-17.5) Hematocrit 39.1 % (39.0-53.0) Mean Corpuscular Volume 87 fL (79-100) Mean Corpuscular Hemoglobin 30 pg (25-35) Mean Corpuscular Hemoglobin Concent 34 g/dL (31-37) Red Cell Distribution Width 13.3 % (11.5-14.5) Platelet Count 177 x10^3/uL (140-400) Neutrophils (%) (Auto) 83 % (31-73) Lymphocytes (%) (Auto) 7 % (24-48) Monocytes (%) (Auto) 9 % (0-9) Eosinophils (%) (Auto) 0 % (0-3) Basophils (%) (Auto) 1 % (0-3) Neutrophils # (Auto) 6.1 x10^3uL (1.8-7.7) Lymphocytes # (Auto) 0.5 x10^3/uL (1.0-4.8) Monocytes # (Auto) 0.7 x10^3/uL (0.0-1.1) Eosinophils # (Auto) 0.0 x10^3/uL (0.0-0.7) Basophils # (Auto) 0.1 x10^3/uL (0.0-0.2) Sodium Level 137 mmol/L (136-145) Potassium Level 4.1 mmol/L (3.5-5.1) Chloride Level 102 mmol/L (98-107) Carbon Dioxide Level 26 mmol/L (21-32) Anion Gap 9 (6-14) Blood Urea Nitrogen 19 mg/dL (8-26) Creatinine 1.3 mg/dL (0.7-1.3) Estimated GFR (Cockcroft-Gault) 53.0 Glucose Level 101 mg/dL (70-99) Calcium Level 8.4 mg/dL (8.5-10.1) Assessment/Plan The patient is a 81-year-old white male who was found to be in urinary retention with a residual of approximately 700 mL. Patient had Villalobos catheter placed. Patient states he does have a history of BPH but has not been on any medications for it and has not had any urologic operations. The testes are descended bilaterally. The phallus is within normal limits. Abdomen is soft nontender. Patient has a Villalobos catheter to gravity drainage and the urine is grossly clear. The examination patient has good sphincter tone prostate is smooth nontender without nodules overall size 35 g. He had a renal ultrasound with some dilation of the left renal pelvis but otherwise within normal limits. We'll go ahead and get a CT abdomen and pelvis without contrast and placed the patient on Flomax and have the patient follow-up with urology at the [facility] in the next week or 2 for a voiding trial. EDSON CUMMINGS MD Feb 14, 2017 09:53
[2017-02-14 11:00] VITALS: BP 103/53
--- NOTE | 2017-02-14 13:17 | RAD ---
CT of the abdomen and pelvis without contrast, 02/14/2017: History: Urinary retention Noncontrast scans were obtained as requested. There is mild streaky atelectasis or scarring in the right posterior costophrenic angle. The unopacified liver is unremarkable. There is a moderate size gallstone in the neck of the gallbladder. No pericholecystic edema is seen. No pancreatic abnormality is detected. The spleen is of normal size. There is mild bilateral perinephric edema. No intrarenal calculi are identified. The left renal collecting system is only mildly prominent. The ureters are not dilated. Pelvic calcifications are probably vascular. A Villalobos catheter is present in the urinary bladder. Its [place] are mildly thickened in a diffuse pattern. There is gas in the bladder presumably on an iatrogenic basis. The prostate gland is enlarged measuring nearly 6 cm in width. Aortoiliac calcific plaquing is present without evidence of aneurysm. No abdominal or pelvic adenopathy is seen. The bowel loops are not dilated. No free fluid or free air is evident in the abdomen or pelvis. There are moderate scattered degenerative changes in the lumbar spine. IMPRESSION: 1. Cholelithiasis. 2. Mild to moderate bilateral perinephric edema. 3. Moderate nonspecific prostatic enlargement. 4. Mild diffuse bladder wall thickening, likely due to chronic bladder outlet obstruction. PQRS Compliance Statement: One or more of the following individualized dose reduction techniques were utilized for this examination: 1. Automated exposure control 2. Adjustment of the mA and/or kV according to patient size 3. Use of iterative reconstruction technique
[2017-02-14 15:00] VITALS: BP 101/53
--- NOTE | 2017-02-14 16:07 | PDOC ---
PROGRESS NOTES Subjective Subjective Pt. with retention Objective Objective Vital Signs Date Time Temp Pulse Resp B/P (MAP) Pulse Ox O2 Delivery O2 Flow Rate FiO2 02/14/17 15:00 98.6 76 101/53 (69) 95 Room Air 98.6 02/14/17 11:00 18 Intake and Output 02/14/17 07:00 Intake Total 1240 ml Output Total 1100 ml Balance 140 ml Intake Oral 1240 ml Output Urine Total 1100 ml # Voids 1 Physical Exam Physical Exam CT-no hydro Plan Plan of Care Keep abarca flomax F/U NM urologist in 1-2 weeks for voiding trial Problems Medical Problems: (1) Generalized weakness Status: Acute (2) Urinary tract infection Status: Acute Comment Review of Relevant I have reviewed the following items kemi (where applicable) has been applied. Labs Laboratory Tests Test 02/12/17 21:57 02/12/17 23:57 02/14/17 06:15 White Blood Count 9.5 x10^3/uL (4.0-11.0) 7.4 x10^3/uL (4.0-11.0) Red Blood Count 4.74 x10^6/uL (4.30-5.70) 4.48 x10^6/uL (4.30-5.70) Hemoglobin 14.2 g/dL (13.0-17.5) 13.4 g/dL (13.0-17.5) Hematocrit 41.4 % (39.0-53.0) 39.1 % (39.0-53.0) Mean Corpuscular Volume 87 fL (79-100) 87 fL (79-100) Mean Corpuscular Hemoglobin 30 pg (25-35) 30 pg (25-35) Mean Corpuscular Hemoglobin Concent 34 g/dL (31-37) 34 g/dL (31-37) Red Cell Distribution Width 13.5 % (11.5-14.5) 13.3 % (11.5-14.5) Platelet Count 219 x10^3/uL (140-400) 177 x10^3/uL (140-400) Neutrophils (%) (Auto) 87 % (31-73) 83 % (31-73) Lymphocytes (%) (Auto) 4 % (24-48) 7 % (24-48) Monocytes (%) (Auto) 9 % (0-9) 9 % (0-9) Eosinophils (%) (Auto) 0 % (0-3) 0 % (0-3) Basophils (%) (Auto) 1 % (0-3) 1 % (0-3) Neutrophils # (Auto) 8.3 x10^3uL (1.8-7.7) 6.1 x10^3uL (1.8-7.7) Lymphocytes # (Auto) 0.3 x10^3/uL (1.0-4.8) 0.5 x10^3/uL (1.0-4.8) Monocytes # (Auto) 0.8 x10^3/uL (0.0-1.1) 0.7 x10^3/uL (0.0-1.1) Eosinophils # (Auto) 0.0 x10^3/uL (0.0-0.7) 0.0 x10^3/uL (0.0-0.7) Basophils # (Auto) 0.1 x10^3/uL (0.0-0.2) 0.1 x10^3/uL (0.0-0.2) Segmented Neutrophils % 91 % (35-66) Band Neutrophils % 5 % (0-9) Lymphocytes % 2 % (24-48) Monocytes % 2 % (0-10) Platelet Estimate Adequate (ADEQUATE) Sodium Level 139 mmol/L (136-145) 137 mmol/L (136-145) Potassium Level 4.2 mmol/L (3.5-5.1) 4.1 mmol/L (3.5-5.1) Chloride Level 103 mmol/L (98-107) 102 mmol/L (98-107) Carbon Dioxide Level 28 mmol/L (21-32) 26 mmol/L (21-32) Anion Gap 8 (6-14) 9 (6-14) Blood Urea Nitrogen 22 mg/dL (8-26) 19 mg/dL (8-26) Creatinine 1.2 mg/dL (0.7-1.3) 1.3 mg/dL (0.7-1.3) Estimated GFR (Cockcroft-Gault) 58.1 53.0 Glucose Level 172 mg/dL (70-99) 101 mg/dL (70-99) Lactic Acid Level 1.2 mmol/L (0.4-2.0) Calcium Level 8.3 mg/dL (8.5-10.1) 8.4 mg/dL (8.5-10.1) Total Bilirubin 0.5 mg/dL (0.2-1.0) Direct Bilirubin 0.1 mg/dL (0.0-0.2) Aspartate Amino Transf (AST/SGOT) 15 U/L (15-37) Alanine Aminotransferase (ALT/SGPT) 12 U/L (16-63) Alkaline Phosphatase 56 U/L (46-116) Troponin I Quantitative < 0.017 ng/mL (0.000-0.055) FU-Leg-D-Type Natriuretic Peptide 390 pg/mL (0-449) Total Protein 7.3 g/dL (6.4-8.2) Albumin 3.3 g/dL (3.4-5.0) Lipase 58 U/L (73-393) Urine Collection Type Unknown Urine Color Yellow Urine Clarity Cloudy Urine pH 6.0 Urine Specific [place] 1.015 Urine Protein 100 mg/dL (NEG-TRACE) Urine Glucose (UA) Negative mg/dL (NEG) Urine Ketones (Stick) Trace mg/dL (NEG) Urine Blood Large (NEG) Urine Nitrite Negative (NEG) Urine Bilirubin Negative (NEG) Urine Urobilinogen Dipstick 0.2 mg/dL (0.2 mg/dL) Urine Leukocyte Esterase Large (NEG) Urine RBC Tntc /HPF (0-2) Urine WBC Tntc /HPF (0-4) Urine Squamous Epithelial Cells Few /LPF Urine Bacteria Moderate /HPF (0-FEW) Urine Mucus Slight /LPF Laboratory Tests Test 02/14/17 06:15 White Blood Count 7.4 x10^3/uL (4.0-11.0) Red Blood Count 4.48 x10^6/uL (4.30-5.70) Hemoglobin 13.4 g/dL (13.0-17.5) Hematocrit 39.1 % (39.0-53.0) Mean Corpuscular Volume 87 fL (79-100) Mean Corpuscular Hemoglobin 30 pg (25-35) Mean Corpuscular Hemoglobin Concent 34 g/dL (31-37) Red Cell Distribution Width 13.3 % (11.5-14.5) Platelet Count 177 x10^3/uL (140-400) Neutrophils (%) (Auto) 83 % (31-73) Lymphocytes (%) (Auto) 7 % (24-48) Monocytes (%) (Auto) 9 % (0-9) Eosinophils (%) (Auto) 0 % (0-3) Basophils (%) (Auto) 1 % (0-3) Neutrophils # (Auto) 6.1 x10^3uL (1.8-7.7) Lymphocytes # (Auto) 0.5 x10^3/uL (1.0-4.8) Monocytes # (Auto) 0.7 x10^3/uL (0.0-1.1) Eosinophils # (Auto) 0.0 x10^3/uL (0.0-0.7) Basophils # (Auto) 0.1 x10^3/uL (0.0-0.2) Sodium Level 137 mmol/L (136-145) Potassium Level 4.1 mmol/L (3.5-5.1) Chloride Level 102 mmol/L (98-107) Carbon Dioxide Level 26 mmol/L (21-32) Anion Gap 9 (6-14) Blood Urea Nitrogen 19 mg/dL (8-26) Creatinine 1.3 mg/dL (0.7-1.3) Estimated GFR (Cockcroft-Gault) 53.0 Glucose Level 101 mg/dL (70-99) Calcium Level 8.4 mg/dL (8.5-10.1) Medications Current Medications Sodium Chloride 500 ml @ 500 mls/hr 1X ONCE IV Last administered on 23:07; Start 02/12/17 at 23:00; Stop 02/12/17 at 23:59; Status DC Levofloxacin/ Dextrose 100 ml @ 100 mls/hr 1X ONCE IV Last administered on 01:18; Start 02/13/17 at 01:00; Stop 02/13/17 at 01:59; Status DC Ondansetron HCl (Zofran) 4 mg PRN Q8HRS PRN IV NAUSEA/VOMITING Last administered on 02/13/17 01:18; Start 02/13/17 at 00:45; Stop 02/14/17 at 00:44 ; Status DC Morphine Sulfate 2 mg PRN Q2HR PRN IV SEVERE PAIN Last administered on 09:46; Start 02/13/17 at 00:45; Stop 02/13/17 at 10:16; Status DC Sodium Chloride 1,000 ml @ 100 mls/hr 1X ONCE IV Last administered on 01:19; Start 02/13/17 at 01:00; Stop 02/13/17 at 10:59; Status DC Phenazopyridine HCl (Pyridium) 200 mg PRN TID PRN PO URINARY PAIN; Start at 10:00 Levofloxacin (Levaquin) 500 mg DAILY06 PO ; Start 02/14/17 at 06:00; Stop at 06:00; Status DC Tamsulosin HCl (Flomax) 0.4 mg DAILY PO Last administered on 02/14/17 09:45; Start 02/14/17 at 09:00 Tamsulosin HCl (Flomax) 0.4 mg 1X ONCE PO Last administered on 02/13/17 10:22 ; Start 02/13/17 at 10:00; Stop 02/13/17 at 10:05; Status DC Morphine Sulfate 4 mg PRN Q2HR PRN IV SEVERE PAIN Last administered on 15:30; Start 02/13/17 at 10:15; Stop 02/14/17 at 16:04; Status DC Levofloxacin (Levaquin) 250 mg DAILY06 PO Last administered on 02/14/17 05:46 ; Start 02/14/17 at 06:00 Acetaminophen (Tylenol) 650 mg PRN Q6HRS PRN PO Temp Last administered on 20:50; Start 02/13/17 at 19:45 Polyethylene Glycol (miraLAX PACKET) 17 gm DAILY PO Last administered on 09:45; Start 02/14/17 at 09:00 Docusate Sodium (Colace) 100 mg PRN DAILY PRN PO CONSTIPATION; Start 02/14/17 at 09:00 Morphine Sulfate 2 mg PRN Q2HR PRN IV SEVERE PAIN; Start 02/14/17 at 16:15; Status UNV Tramadol HCl (Ultram) 50 mg PRN Q6HRS PRN PO PAIN; Start 02/14/17 at 16:15; Status UNV Active Scripts Active Reported [[no home meds]] Vitals/I & O Vital Sign - Last 24 Hours 02/13/17 02/13/17 02/13/17 02/14/17 19:00 20:00 22:35 03:00 Temp 101.3 99.1 97.7 101.3 99.1 97.7 Pulse 93 84 81 Resp 18 20 18 B/P (MAP) 131/61 (84) 92/51 (65) 97/40 (59) Pulse Ox 96 93 93 O2 Delivery Room Air Room Air Room Air Room Air 02/14/17 02/14/17 02/14/17 02/14/17 07:00 08:00 11:00 15:00 Temp 98.9 98.6 98.6 98.9 98.6 98.6 Pulse 83 77 76 Resp 18 18 B/P (MAP) 113/59 (77) 103/53 (70) 101/53 (69) Pulse Ox 96 95 95 O2 Delivery Room Air Room Air Room Air Room Air Intake and Output 02/13/17 02/13/17 02/14/17 15:00 23:00 07:00 Intake Total 580 ml 360 ml 300 ml Output Total 400 ml 700 ml Balance 580 ml -40 ml -400 ml Nutrition Consultation Dietary Evaluation: Recommendations by RD: Increase Calorie Intake, Protein supplementation Comments: added boost breeze tid offer supplements when diet adv Expected Outcomes/Goals: to meet > 75% est nutr needs Malnutrition Findings: Body Fat Depletion (Non Severe: Mild Depletion Weight Status: Underweight EDSON CUMMINGS MD Feb 14, 2017 16:07
[2017-02-14 19:00] VITALS: BP 126/62
[2017-02-14] MEDS: traMADol 50 MG TABLET PO PRN (20:33)
[2017-02-14 23:00] VITALS: BP 131/60
[2017-02-15 03:00] VITALS: BP 100/54
[2017-02-15 07:00] VITALS: BP 92/52
[2017-02-15] MEDS ORDERED: LEVO500T59 PO (07:34)
--- NOTE | 2017-02-15 08:26 | PDOC3 ---
Discharge Summary Visit Information Date of Admission: Feb 14, 2017 Date of Discharge: Feb 15, 2017 Admitting Diagnosis Comment: UTI flank pain urinary retention, BPH Final Diagnosis Problems Medical Problems: (1) Generalized weakness Status: Acute (2) Urinary tract infection Status: Acute Brief Hospital Course Allergies Allergies Coded Allergies Type Severity Reaction Last Updated Verified Penicillins Allergy Intermediate Swelling 02/12/17 Yes Vital Signs Vital Signs Date Time Temp Pulse Resp B/P (MAP) Pulse Ox O2 Delivery O2 Flow Rate FiO2 02/15/17 07:00 98.0 72 18 92/52 (65) 95 Room Air 98.0 Lab Results Laboratory Tests Test 02/14/17 06:15 White Blood Count 7.4 x10^3/uL (4.0-11.0) Red Blood Count 4.48 x10^6/uL (4.30-5.70) Hemoglobin 13.4 g/dL (13.0-17.5) Hematocrit 39.1 % (39.0-53.0) Mean Corpuscular Volume 87 fL (79-100) Mean Corpuscular Hemoglobin 30 pg (25-35) Mean Corpuscular Hemoglobin Concent 34 g/dL (31-37) Red Cell Distribution Width 13.3 % (11.5-14.5) Platelet Count 177 x10^3/uL (140-400) Neutrophils (%) (Auto) 83 % (31-73) Lymphocytes (%) (Auto) 7 % (24-48) Monocytes (%) (Auto) 9 % (0-9) Eosinophils (%) (Auto) 0 % (0-3) Basophils (%) (Auto) 1 % (0-3) Neutrophils # (Auto) 6.1 x10^3uL (1.8-7.7) Lymphocytes # (Auto) 0.5 x10^3/uL (1.0-4.8) Monocytes # (Auto) 0.7 x10^3/uL (0.0-1.1) Eosinophils # (Auto) 0.0 x10^3/uL (0.0-0.7) Basophils # (Auto) 0.1 x10^3/uL (0.0-0.2) Sodium Level 137 mmol/L (136-145) Potassium Level 4.1 mmol/L (3.5-5.1) Chloride Level 102 mmol/L (98-107) Carbon Dioxide Level 26 mmol/L (21-32) Anion Gap 9 (6-14) Blood Urea Nitrogen 19 mg/dL (8-26) Creatinine 1.3 mg/dL (0.7-1.3) Estimated GFR (Cockcroft-Gault) 53.0 Glucose Level 101 mg/dL (70-99) Calcium Level 8.4 mg/dL (8.5-10.1) Brief Hospital Course Mr. Gambino is a 81 old male admitted for uTI and retention sxs, Seen by urology., 700cc post void residual, Advised to go home with tevin, ff up [place] urology Jeannette, Discussed with pt. Looks weak, does not want HH, has had that before, TRied to call [facility] dtr 2x, no voicemail # [phone], will try again later to discuss plan of care, ff up URO, UTi on UA, being treated with PO levaquin, will do the same on dc. PT seen and examined Time 32 mins in explaining things etc.. Discharge Information Condition at Discharge: Improved, Stable Disposition/Orders: D/C to Home Miscellaneous Medications [[no home meds]], (Reported) JOY PRINGLE MD Feb 15, 2017 08:26
[2017-02-15] MEDS: POLYETHYLENE GLYCOL 3350 17 GM PACKET. PO SCH (08:47)
[2017-02-15] MEDS: TAMSULOSIN 0.4 MG CAP.ER.24H. PO SCH (08:47)
[2017-02-15 10:40] VITALS: BP 97/49
[2017-02-15 15:04] VITALS: BP 107/60
[2017-02-15] MEDS: MORPHINE SULFATE 2 MG/ML DISP.SYRIN. IV PRN (15:18)
[2017-02-15 19:00] VITALS: BP 114/65
[2017-02-15] MEDS: traMADol 50 MG TABLET PO PRN (21:32)
[2017-02-15 23:00] VITALS: BP 93/52
[2017-02-16 03:00] VITALS: BP 94/50
[2017-02-16 07:00] VITALS: BP 92/47
[2017-02-16] MEDS: traMADol 50 MG TABLET PO PRN (08:27)
[2017-02-16] MEDS: TAMSULOSIN 0.4 MG CAP.ER.24H. PO SCH (08:27)
[2017-02-16] MEDS: POLYETHYLENE GLYCOL 3350 17 GM PACKET. PO SCH (08:28)
[2017-02-16] MEDS: MORPHINE SULFATE 2 MG/ML DISP.SYRIN. IV PRN ×3 (09:26→23:01)
--- NOTE | 2017-02-16 09:59 | PDOC ---
Provider Note Provider Note Read RN note after my dc order Pt refused even HH yesterday when I talked to him ANd he was too weak to dc yesterday, 2 person assits [facility] pt today, might be agreeable to SNU, [facility] Del[facility] io RN SNu screen will be done She will discuss with aware of last nights events Emy do mAR incase dc to SNU happens today Pt seen and examined with RN at bedside JOY PRINGLE MD Feb 16, 2017 09:59
[2017-02-16 11:00] VITALS: BP 94/53
[2017-02-16 15:00] VITALS: BP 109/53
[2017-02-16 19:00] VITALS: BP 124/65
[2017-02-16 23:13] VITALS: BP 122/64
[2017-02-17 03:00] VITALS: BP 94/51
[2017-02-17 07:00] VITALS: BP 100/53
[2017-02-17] MEDS: POLYETHYLENE GLYCOL 3350 17 GM PACKET. PO SCH (08:47)
[2017-02-17] MEDS: traMADol 50 MG TABLET PO PRN (08:47)
[2017-02-17] MEDS: TAMSULOSIN 0.4 MG CAP.ER.24H. PO SCH (08:48)
--- NOTE | 2017-02-17 10:29 | PDOC ---
Provider Note Provider Note DISCHARGE SUMMARY Site Code: [facility] Name: SHAMIKA PÉREZ Acct: [id number] MR: [id number] : 1935 Visit Date: 02/14/17 [facility] [address] [place] [address] DISCHARGE SUMMARY PATIENT: SHAMIKA PÉREZ ACCOUNT: [id number] : 1935 LOC: [address] [place] [address] AGE: 81 SEX: M STATUS: ADM IN LOCATION: [address] [place] [address] Discharge Summary Visit Information Date of Admission: Feb 14, 2017 Date of Discharge: Feb 17, 2017 Admitting Diagnosis Comment: UTI flank pain urinary retention, BPH Final Diagnosis Problems Medical Problems: (1) Generalized weakness Status: Acute (2) Urinary tract infection Status: Acute Brief Hospital Course Allergies Allergies Coded Allergies Type Severity Reaction Last Updated Verified Penicillins Allergy Intermediate Swelling 02/12/17 Yes Vital Signs Vital Signs Date Time Temp Pulse Resp B/P (MAP) Pulse Ox O2 Delivery O2 Flow Rate FiO2 02/15/17 07:00 98.0 72 18 92/52 (65) 95 Room Air 98.0 Lab Results Laboratory Tests Test 02/14/17 06:15 White Blood Count 7.4 x10^3/uL (4.0-11.0) Red Blood Count 4.48 x10^6/uL (4.30-5.70) Hemoglobin 13.4 g/dL (13.0-17.5) Hematocrit 39.1 % (39.0-53.0) Mean Corpuscular Volume 87 fL (79-100) Mean Corpuscular Hemoglobin 30 pg (25-35) Mean Corpuscular Hemoglobin Concent 34 g/dL (31-37) Red Cell Distribution Width 13.3 % (11.5-14.5) Platelet Count 177 x10^3/uL (140-400) Neutrophils (%) (Auto) 83 % (31-73) Lymphocytes (%) (Auto) 7 % (24-48) Monocytes (%) (Auto) 9 % (0-9) Eosinophils (%) (Auto) 0 % (0-3) Basophils (%) (Auto) 1 % (0-3) Neutrophils # (Auto) 6.1 x10^3uL (1.8-7.7) Lymphocytes # (Auto) 0.5 x10^3/uL (1.0-4.8) Monocytes # (Auto) 0.7 x10^3/uL (0.0-1.1) Eosinophils # (Auto) 0.0 x10^3/uL (0.0-0.7) Basophils # (Auto) 0.1 x10^3/uL (0.0-0.2) Sodium Level 137 mmol/L (136-145) Potassium Level 4.1 mmol/L (3.5-5.1) Chloride Level 102 mmol/L (98-107) Carbon Dioxide Level 26 mmol/L (21-32) Anion Gap 9 (6-14) Blood Urea Nitrogen 19 mg/dL (8-26) Creatinine 1.3 mg/dL (0.7-1.3) Estimated GFR (Cockcroft-Gault) 53.0 Glucose Level 101 mg/dL (70-99) Calcium Level 8.4 mg/dL (8.5-10.1) Brief Hospital Course Mr. Pérez is a 81 old male admitted for uTI and retention sxs, Seen by urology., 700cc post void residual, Advised to go home with tevin, ff up [place] urology Jeannette, Discussed with pt. Looks weak, does not want HH, has had that before, TRied to call demetrius monroer 2x, no voicemail # [phone], will try again later to discuss plan of care, ff up URO, UTi on UA, being treated with PO levaquin, will do the same on dc. PT seen and examined Time 32 mins in explaining things etc.. Discharge Information Condition at Discharge: Improved, Stable Disposition/Orders: D/C to Home Miscellaneous Medications [[no home meds]], (Reported) JOY PRINGLE MD Feb 15, 2017 08:26 DICTATED BY: JOY PRINGLE MD 02/17/17825 SIGNED BY: JOY PRINGLE MD 02/15/17825 cc: DAMION BOSTON MD; JOY PRINGLE MD; UNKNOWN PCP NAME ~ addendum: stayed 2 days bec initially did notw ant SNu, BUt is a 2 person assist here, HE later realized and is agreeable to [facility] JULIO CHERRIE Y MD Feb 17, 2017 10:29
[2017-02-17 10:36] VITALS: BP 100/53
== END 2017-02-17 14:42 | DRG 690 ==
LOC: ER 21:41 → 5 NORTH 02-13 00:41 → OBSVTOIN 02-14 08:30
PROVIDERS: ADMIT Internal Medicine Hematology & Oncology; ATTEND Internal Medicine Hematology & Oncology
DX: N39.0 Urinary tract infection, site not specified (principal); N40.1 Benign prostatic hyperplasia with lower urinary tract symptoms; R33.8 Other retention of urine; N20.0 Calculus of kidney; I44.7 Left bundle-branch block, unspecified; Z88.0 Allergy status to penicillin; Z79.899 Other long term (current) drug therapy; Z86.12 Personal history of poliomyelitis; Z79.1 Long term (current) use of non-steroidal anti-inflammatories (NSAID); Z79.2 Long term (current) use of antibiotics
CPT/HCPCS: 36415; 71010; 74000; 74176; 76770; 80048; 80076; 81001; 83605; 83690; 83880; 84484; 85007; 85027; 87040; 87086; 87186; 93005; A6539; G0378; G0379; J1956; J2270; J2405; J7030; J7040; 97116; 97530; 97535

== ENCOUNTER → 2017-03-07 | Outpatient (CLI) | payer MEDICARE ==
[2017-02-17 10:36] VITALS: BP 100/53
[~2017-03-07] MED LIST: BARIUM SULFATE 40% (APPLE) 148 GM PWD. PO ONE; LEVO500T59 PO; [no home meds]
--- NOTE | 2017-03-07 11:50 | RAD ---
Video dysphasia study, 03/07/2017: History: Dysphasia The swallowing mechanism was examined fluoroscopically in the lateral projection while the patient ingested a variety of food materials mixed with barium. 2.0 minutes of fluoroscopy time is utilized. One fluoroscopic video loop was recorded by a member of the speech Department. When ingesting the nectar consistency materials there was intermittent deep laryngeal penetration without miles aspiration. On most swallows there was lack of epiglottic inversion. When ingesting the thin liquids there was a greater degree of laryngeal penetration. When utilizing the straw with the thin liquids there was minimal miles aspiration during swallowing. When ingesting the thicker materials the laryngeal penetration during swallowing abated. There tended to be a moderate amount of vallecular residue with the thicker materials. Subsequent swallows of the nectar consistency material in the presence of this residue resulted in delayed laryngeal penetration and minimal miles aspiration. IMPRESSION: Disordered swallowing mechanism with minimal intermittent miles aspiration as described above.
== END | disposition home or self-care (01) ==
LOC: RAD 10:45
PROVIDERS: ATTEND Internal Medicine
DX: Z51.89 Encounter for other specified aftercare (principal); R13.10 Dysphagia, unspecified; N39.0 Urinary tract infection, site not specified; G14 Postpolio syndrome; R33.9 Retention of urine, unspecified; F03.90 Unspecified dementia, unspecified severity, without behavioral disturbance, psychotic disturbance, mood disturbance, and anxiety; N40.1 Benign prostatic hyperplasia with lower urinary tract symptoms; M62.81 Muscle weakness (generalized); R26.2 Difficulty in walking, not elsewhere classified; M54.5 Low back pain; K80.00 Calculus of gallbladder with acute cholecystitis without obstruction; R63.0 Anorexia; Z86.12 Personal history of poliomyelitis
CPT/HCPCS: 74230; 92611